=== PATIENT | male | born 1960 | race Caucasian/White ===

== ENCOUNTER 2021-07-19 19:28 | Inpatient (IN) | payer BC, SELFPAY ==
[2021-07-19] VITALS (20 sets, daily range): BP systolic 112–182; BP diastolic 63–107; PULSE 72–87; RESP 11–24; TEMP 35.3–37; O2SAT 80–100; BMI 24.0
--- NOTE | ~2021-07-19 | XR_ITS ---
XR chest 1V portable DATE: 07/19/2021 19:55 INDICATION: Bilateral upper chest pain TECHNIQUE: Apical lordotic portable upright AP view on 07/19/2021 at 1952 hours COMPARISON: None FINDINGS: Normal heart size. Is aortic calcification and tortuosity. No hilar or mediastinal enlargem ent is evident. The lungs appear clear of infiltrate or consolidation. No pleural effusion or pulmona ry vascular congestion or pneumothorax. Bilateral rotator cuff atrophy. IMPRESSION: No active cardiac pulmonary disease Aortic calcification and tortuosity Reviewed, dictated and finalized at location [facility]
--- NOTE | 2021-07-19 19:34 | ECG_ITS ---
Measurements Intervals [place] Rate: 72 P: 55 MT: 156 QRS: 24 QRSD: 97 T: 56 QT: 399 QTc: 438 Interpretive Statements SINUS RHYTHM INFERIOR ST ELEVATION MYOCARDIAL INFARCT- ACUTE POSTERIOR INFARCT- ACUTE LATERAL ST ELEVATION MYOCARDIAL INFARCT- ACUTE BASELINE ARTIFACT- I, II, III, V4 ABNORMAL ECG Electronically Signed On 07-19-2021 20:43:48 PLASTICS FABRICATOR AND ASSEMBLER by Rc Maciel D.O.
--- NOTE | 2021-07-19 19:55 | ED.GENADULT ---
HPI - General Adult General Chief complaint: Chest Pain Stated complaint: chest pain x1hr Time Seen by Provider: 07/19/21 19:45 History of Present Illness HPI narrative: Patient is a 60-year-old gentleman who presents to emergency department chief complaint of chest pain. Patient reports approximately 1 hour prior to arrival he started having midsternal pressure and tightness in his chest. The patient states is nonradiating but reports that he got diaphoretic when it happened the patient reports mild shortness of breath. Patient reports no prior cardiac history but has history of hypertension. Patient reports has never had a stress test or cardiac cath. Patient reports pain is not improved by anything nor is it worsened by anything. Related Data Allergies Allergy/AdvReac Type Severity Reaction Status Date / Time No Known Allergies Allergy Verified 07/19/21 19:54 Review of Systems Review of Systems: A 10 system review of systems was completed on the patient and is negative except for what is stated in the HPI. Nursing and ancillary documentation was reviewed. PMFSH Comments Patient denies smoking Exam Narrative: GENERAL: Well-appearing, well-nourished, and in no acute distress. HEAD: Normocephalic, atraumatic. EYES: PERRLA and EOMI. ENT: Nares clear, no rhinorrhea or epistaxis. Mucous membranes moist. NECK: Supple. CHEST: Clear to auscultation. No respiratory distress. HEART: Regular rate and rhythm. No murmur heard. Normal peripheral pulses. ABDOMEN: Soft, nontender, nondistended, normal active bowel sounds. EXTREMITIES: Normal range of motion. No edema. SKIN: Warm, dry, no rash. NEURO: No focal deficits. Alert and oriented x3. PSYCH: Normal mood and affect. Course Course Emergency Course: EKG shows a ST elevation FL with elevation in 2 3 aVF and reciprocal changes in V1 through V3 Vital Signs Vital signs: Vital Signs Temperature 35.3 C L 07/19/21 19:35 Pulse Rate 77 07/19/21 19:35 Respiratory Rate 18 07/19/21 19:35 Blood Pressure 182/95 H 07/19/21 19:35 Pulse Oximetry 100 07/19/21 19:35 Temperature 35.3 C L 07/19/21 19:35 Pulse Rate 87 07/19/21 19:50 Respiratory Rate 19 07/19/21 19:50 Blood Pressure 177/107 H 07/19/21 19:50 Pulse Oximetry 100 07/19/21 19:35 Medical Decision Making Vital Signs Vital Signs: Vital Signs Temperature 35.3 C L 07/19/21 19:35 Pulse Rate 77 07/19/21 19:35 Respiratory Rate 18 07/19/21 19:35 Blood Pressure 182/95 H 07/19/21 19:35 Pulse Oximetry 100 07/19/21 19:35 Temperature 35.3 C L 07/19/21 19:35 Pulse Rate 87 07/19/21 19:50 Respiratory Rate 19 07/19/21 19:50 Blood Pressure 177/107 H 07/19/21 19:50 Pulse Oximetry 100 07/19/21 19:35 Lab Data Result diagrams: 07/19/21 19:51 07/19/21 19:51 Labs: Lab Results 07/19/21 07/19/21 07/19/21 Range/Units 19:51 19:51 19:51 WBC Pending RBC Pending Hgb Pending Hct Pending MCV Pending MCH Pending MCHC Pending RDW Pending Plt Count Pending MPV Pending Immature Gran % (Auto) Pending Neut % (Auto) Pending Lymph % (Auto) Pending Taney % (Auto) Pending Eos % (Auto) Pending Baso % (Auto) Pending Lymph # (Auto) Pending Taney # (Auto) Pending Eos # (Auto) Pending Baso # (Auto) Pending Abs Immat Gran (auto) Pending Absolute Neuts (auto) Pending Absolute Nucleated RBC Pending Nucleated RBC % Pending PT Pending INR Pending APTT Pending Sodium Pending Potassium Pending Chloride Pending Carbon Dioxide Pending Anion Gap Pending BUN Pending Creatinine Pending Estim Creat Clear Calc Pending Estimated GFR Pending Glucose Pending Calcium Pending Total Bilirubin Pending AST Pending ALT Pending Alkaline Phosphatase Pending
[2021-07-19 19:57] LABS: Basophils Absolute Auto 0.1 K/mm3 (0.0-0.1); Basophils Percent Auto 0.9 % (0.2-1.2); Eosinophils Absolute Auto 0.3 K/mm3 (0-0.3); Eosinophils Percent Auto 2.2 % (0-4.4); Hematocrit 51.9 % (42.0-52.0); Hemoglobin 17.9 g/dL (14.0-18.0); Immature Granulocyte Absolute 0.08 K/mm3 (0.00-0.031); Immature Granulocyte Percent A 0.6 % (0-0.5); Lymphocytes Absolute Auto 1.57 K/mm3 (0.9-3.2); Lymphocytes Percent Auto 12.2 % (18.3-44.2); Mean Corpuscular HGB Conc 34.5 g/dl (32-36); Mean Corpuscular Hemoglobin 31.8 pg (26-34); Mean Corpuscular Volume 92.2 fl (80-100); Mean Platelet Volume 8.5 fl (7.4-10.4); Monocytes Absolute Auto 0.9 K/mm3 (0.1-0.6); Monocytes Percent Auto 6.7 % (2.6-8.5); Neutrophils Percent Auto 77.4 % (45.5-73.1); Platelet Count Result 239 k/mm3 (150-375); Red Blood Count 5.63 M/mm3 (4.6-6.20); Red Cell Distribution Width 14.2 % (11.5-14.5); White Blood Count 12.9 K/mm3 (4.5-10.0)
[2021-07-19] MEDS: TICAGRELOR 90 MG TABLET 180 MG (19:59)
[2021-07-19] MEDS: MORPHINE SULFATE (*CRX) 4 MG/ML INJ 2 MG IV PUSH (20:04)
[2021-07-19 20:09] LABS: Alanine Aminotransferase 37 U/L (4-50); Albumin Level 5.1 g/dL (3.5-5.1); Alkaline Phosphatase 143 U/L (38-126); Anion Gap 13 mmol/L (8-16); Aspartate Amino Transferase 36 U/L (17-59); Bilirubin,Total 0.6 mg/dL (0.2-1.3); Blood Urea Nitrogen 8 mg/dL (9-20); Calcium 9.8 mg/dL (8.4-10.2); Carbon Dioxide 22 mmol/L (22-30); Chloride 101 mmol/L (98-107); Estimated CRCL calculation 68 ml/min; Estimated Glomerular Filt Rate > 60; Glucose 139 mg/dL (65-110); Lipase 109 U/L (23-300); Potassium 3.4 mmol/L (3.4-5.0); Sodium 136 mmol/L (137-145)
[2021-07-19 20:21] LABS: Troponin I 0.022 ng/mL (0.000-0.034)
[2021-07-19 20:30] LABS: EDCOVIDSCREEN Negative (Negative)
[2021-07-19 21:03] LABS: Prothrombin Time 13.4 Seconds (11.1-14.7)
--- NOTE | 2021-07-19 21:19 | PM.CNCAR ---
Assessment and Plan Additional Plan Inferolateral wall STEMI, Plan emergency LHC and PCI, ASA statin, B-frederick, ACEI, TTE, cardiac rehab History of Present Illness History of Present Illness Consult date/time: 07/19/21 21:19 Consult reason: chest pain Reason For Visit: chest pain x1hr Narrative: acute midsternal diffuse chest pain non radiating, started 2 hours before admission, pain is sever and associated with nausea and sweating, no precipitating or relieving factors, and no similar episodes in past. Review of Systems Review of Systems: All systems reviewed & are unremarkable except as noted in HPI and below [facility] Past Medical History Medical History (Updated 07/19/21 @ 21:24 by Ernst Townsend MD) Hypertension Meds Home Medications and Allergies Allergies Allergy/AdvReac Type Severity Reaction Status Date / Time No Known Allergies Allergy Verified 07/19/21 19:54 Vital Signs Vital Signs - 24 hr 07/19/21 19:35 07/19/21 19:50 07/19/21 20:11 Temperature 35.3 C L Pulse Rate 77 87 75 Respiratory Rate 18 19 14 Blood Pressure 182/95 H 177/107 H 174/94 H Pulse Oximetry 100 99 07/19/21 20:25 Temperature Pulse Rate 72 Respiratory Rate 16 Blood Pressure 162/101 H Pulse Oximetry 100 Exam Const: General: comfortable and no acute distress Other: Able to lie flat HENMT: General nose exam: Normal nares present and no epistaxis Mouth: Yes moist mucous membranes Eyes: Sclera: sclerae normal Pupils: Equal, round and reactive pupils present Neck: Neck: supple and no JVD Carotids: no bruits Resp: Auscultation: clear to auscultation bilaterally and lung sounds not diminished Other: No chest wall tenderness Cardio: Rate: regular rate Rhythm: regular rhythm Heart sounds: no gallops, no murmurs and no rubs GI: GI Palp: Yes Soft to palpation and No Tenderness to palpation present (GI) Auscultation: normal bowel sounds Skin: General skin exam: normal color, rashes and/or lesions noted and no erythema Other: Warm Neuro: Cranial nerves: Yes Equal, round and reactive pupils present Speech: normal speech Other: No obvious focal deficit or facial asymmetry Extrem: General: no edema Other: Normal capillary refills Intact distal pulses. Results Labs and Meds Result diagrams: 07/19/21 19:51 07/19/21 19:51 Lab results: Cardiac Enzymes 07/19/21 Range/Units 19:51 AST 36 (17-59) U/L Troponin I 0.022 (0.000-0.034) ng/mL CBC 07/19/21 Range/Units 19:51 WBC 12.9 H (4.5-10.0) K/mm3 RBC 5.63 (4.6-6.20) M/mm3 Hgb 17.9 (14.0-18.0) g/dL Hct 51.9 (42.0-52.0) % Plt Count 239 (150-375) k/mm3 Lymph # (Auto) 1.57 (0.9-3.2) K/mm3 Sharkey # (Auto) 0.9 H (0.1-0.6) K/mm3 Eos # (Auto) 0.3 (0-0.3) K/mm3 Baso # (Auto) 0.1 (0.0-0.1) K/mm3 Comprehensive Metabolic Panel 07/19/21 Range/Units 19:51 Sodium 136 L (137-145) mmol/L Potassium 3.4 (3.4-5.0) mmol/L Chloride 101 (98-107) mmol/L Carbon Dioxide 22 (22-30) mmol/L BUN 8 L (9-20) mg/dL Creatinine 1.00 (0.7-1.3) mg/dL Glucose 139 H (65-110) mg/dL Calcium 9.8 (8.4-10.2) mg/dL AST 36 (17-59) U/L ALT 37 (4-50) U/L Alkaline Phosphatase 143 H (38-126) U/L Total Protein 9.0 H (6.3-8.2) g/dL Albumin 5.1 (3.5-5.1) g/dL Patient Weight 07/19/21 23:59 Weight 77.11 kg
[2021-07-19 21:20] LABS: Partial Thromboplastin Time 30.5 SECONDS (22.3-36.8)
--- NOTE | 2021-07-19 21:27 | WPDCARDPROC ---
Cardiac Cath Procedure Note Date of procedure:: 07/19/21 Performing physician:: Ernst Townsend MD Assessment and Plan Additional Plan PROCEDURE 1. LHC and coronary angiogram 2. PCI to distal RCA acute total occlusion culprit lesion for STEMI INDICATION STEMI inf wall HISTORY 60 Yrs old male presented with acute chest pain, EKG showed inf wall STEMI PROCEDURE DETAILS Consent obtained and time out done Rt radial access obtained with Seldinger technique Diagnostic angiogram done with JL4 and JR4 and AV crossed with JR4 HEMODYNAMIC FINDINGS Aorta: 100/70 LV: 100/20 No gradient across AV ANGIOGRAPHIC FINDINGS Left main: no obstructive disease LAD: gives on intermediate size diagonal, mid LAD with 70% stenosis LCX: gives OM branches and multiple bifurcations, no obstructive disease in LCX or OM RCA: distal RCA acute total occlusion, LAYLA 0 flow, at RCA bifurcation, culprit lesion for STEMI, class B lesion PCI DETAILS Guide catheter: JR4 Guidewire: Samurai crossed to distal vessel with no difficulty Balloon Emerge 2.5 * 12 mm balloon and followed by stent with 3.0 * 18 mm, post dilated with 3.5 Quantem apex NC and then IVUS was done which revealed stent ended at RCA bifurcation and full expanded, vessel is 4 mm and further post dilation was done with 4.0 NC balloon. Post intervention: LAYLA 3 flow and no residual stenosis COMPLICATIONS None Sheath removed and TR band applied successfully CONCLUSION Successful PCI to acute RCA total occlusion at RCA bifurcation IVUS guided Mid LAD moderate disease RECOMMENDATION ASA, Ticagrelor, statin, B-frederick, ACEI TTE Evaluation for mid LAD in stage intervention
[2021-07-19 22:00] LABS: Activated Clotting Time 315 SEC (74-137)
--- NOTE | 2021-07-19 22:13 | ECG_ITS ---
Measurements Intervals [place] Rate: 69 P: 45 TX: 149 QRS: -8 QRSD: 97 T: 76 QT: 404 QTc: 434 Interpretive Statements SINUS RHYTHM WITH OCCASIONAL SUPRAVENTRICULAR PREMATURE COMPLEXES INFERIOR MYOCARDIAL INFARCTION , RECENT BY PREVIOUS ECG REVIEW COMPARED TO ECG 07/19/2021 19:41:06 INFERIOR CURRENT OF INJURY HAS RESOLVED WITH SOME PERSISTENT INFERIOR ST ELEVATED Electronically Signed On 10-17-2021 12:43:58 CDT by Christopher Holt M.D.
--- NOTE | 2021-07-19 22:36 | ADMGEN ---
This patient, Butch Solares, was admitted to Intensive Care Unit-4. Patient/family oriented to hospital policies and general routines including ID bracelet, bed and alarms, visiting hours, pain management, procedures, bathroom and other care routines, personal items, smoking policy, room service/diet, and visiting hours. Information on how to activate the Rapid Response Team has been discussed. Patient/Family are encouraged to report perceived risks to care and to ask questions if they do not understand what they are told or what they should do.
[2021-07-19] MEDS: SODIUM CHLORIDE 0.9% IV 1,000 ML 125 ML IV CONT (23:00)
[2021-07-20] VITALS (47 sets, daily range): BP systolic 130–159; BP diastolic 83–96; PULSE 63–87; RESP 11–29; TEMP 36–36.9; O2SAT 92–99
--- NOTE | 2021-07-20 08:47 | ECG_ITS ---
Measurements Intervals [place] Rate: 68 P: 36 UT: 141 QRS: -40 QRSD: 108 T: -15 QT: 419 QTc: 446 Interpretive Statements SINUS RHYTHM INCOMPLETE RIGHT BUNDLE BRANCH BLOCK INFERIOR INFARCT- PROBABLY RECENT BASELINE ARTIFACT- I, II, III, AVR, AVL, AVF, V1, V4-V6 ABNORMAL ECG Electronically Signed On 07-20-2021 16:31:48 GREEN LUMBER GRADER by Rc Maciel D.O.
[2021-07-20] MEDS: ATORVASTATIN 40 MG TABLET 80 MG PO (10:04)
[2021-07-20] MEDS: METOPROLOL TARTRATE 12.5 MG TABLET PO (10:04)
[2021-07-20] MEDS: ASPIRIN 81 MG ENTERIC TABLET PO (10:04)
[2021-07-20] MEDS: lisinopriL 20 MG TABLET PO (10:06)
[2021-07-20] MEDS: amLODIPine BESYLATE 5 MG TABLET 10 MG PO (10:14)
[2021-07-20 10:23] LABS: Cholesterol 150 mg/dL (0-200); HDL Direct 41 mg/dL; Triglycerides 96 mg/dL (<150)
[2021-07-20 10:33] LABS: LDL Cholesterol Direct 86 mg/dL
[2021-07-20] MEDS: TICAGRELOR 90 MG TABLET PO ×2 (10:35→21:13)
--- NOTE | 2021-07-20 12:34 | PM.PNCARD ---
Progress Note: A&P Assessment and Plan (1) Acute ST elevation myocardial infarction: Qualifiers: Involved coronary artery: unspecified coronary artery Qualified Code(s): I21.3 - ST elevation (STEMI) myocardial infarction of unspecified site Code(s): I21.3 - ST elevation (STEMI) myocardial infarction of unspecified site Status: Acute Assessment and Plan: Peak troponin over 29. No anginal symptoms. Status post successful 3.0 x 18 mm drug-eluting stent to distal RCA culprit lesion post dilated to 4 mm. Residual mid LAD 70% stenosis. Discussed further evaluation and possible staging intervention in near future as appropriate. -continue aspirin, ticagrelor, statin, metoprolol, lisinopril. Resume amlodipine for BP control. -explained at length need for ongoing hospitalization for minimum of 48 hours. Counseled on Lifestyle modification, absolute importance of compliance with medications and risks with acute stent thrombosis with noncompliance with aspirin and ticagrelor. Explained the importance of aspirin indefinitely. Explained the importance and pathophysiologic benefit of statin therapy in reduction in cholesterol as well as stabilization of CAD and reduction in risk of acute plaque rupture resulting in a heart attack. All questions answered to his satisfaction. Okay to transfer to IMU today. Continue telemetry. -2D echocardiogram in a.m. to assess LV function, valve pathology, pulmonary pressures normal wall motion abnormalities. Recommendation follow after review. (2) NSVT (nonsustained ventricular tachycardia): Code(s): I47.2 - Ventricular tachycardia Status: Acute Assessment and Plan: Is symptomatic. Caution with aggressive up titration of beta-frederick but may increase to 25 mg. Continue telemetry. Discussed significance of ventricular ectopy and nonsustained VT within 1st 24 hours and thereafter. (3) Hypertension: Qualifiers: Hypertension type: primary hypertension Qualified Code(s): I10 - Essential (primary) hypertension Code(s): I10 - Essential (primary) hypertension Status: Inactive Assessment and Plan: BP fair, somewhat elevated. Continue current therapy. (4) Alcohol abuse: Code(s): F10.10 - Alcohol abuse, uncomplicated Status: Acute Assessment and Plan: Counseled on need to cut down and or abstain. Monitor for DT, protocol per unit. Will involve hospitalist service as appropriate. Additional Plan PROCEDURE 1. LHC and coronary angiogram 2. PCI to distal RCA acute total occlusion culprit lesion for STEMI INDICATION STEMI inf wall HISTORY 60 Yrs old male presented with acute chest pain, EKG showed inf wall STEMI PROCEDURE DETAILS Consent obtained and time out done Rt radial access obtained with Seldinger technique Diagnostic angiogram done with JL4 and JR4 and AV crossed with JR4 HEMODYNAMIC FINDINGS Aorta: 100/70 LV: 100/20 No gradient across AV ANGIOGRAPHIC FINDINGS Left main: no obstructive disease LAD: gives on intermediate size diagonal, mid LAD with 70% stenosis LCX: gives OM branches and multiple bifurcations, no obstructive disease in LCX or OM RCA: distal RCA acute total occlusion, LAYLA 0 flow, at RCA bifurcation, culprit lesion for STEMI, class B lesion PCI DETAILS Guide catheter: JR4 Guidewire: Tristianurai crossed to distal vessel with no difficulty Balloon Emerge 2.5 * 12 mm balloon and followed by stent with 3.0 * 18 mm, post dilated with 3.5 Quantem apex NC and then IVUS was done which revealed stent ended at RCA bifurcation and full expanded, vessel is 4 mm and further post dilation was done with 4.0 NC balloon. Post intervention: LAYLA 3 flow and no residual stenosis COMPLICATIONS None Sheath removed and TR band applied successfully CONCLUSION Successful PCI to acute RCA total occlusion at RCA bifurcation IVUS guided Mid LAD moderate disease RECOMMENDATION
--- NOTE | 2021-07-20 12:50 | WPDCNINT ---
Assessment and Plan Assessment and plan (1) Acute ST elevation myocardial infarction: Qualifiers: Involved coronary artery: unspecified coronary artery Qualified Code(s): I21.3 - ST elevation (STEMI) myocardial infarction of unspecified site Code(s): I21.3 - ST elevation (STEMI) myocardial infarction of unspecified site Status: Acute Assessment and Plan: Patient presented with retrosternal chest pain, was found to have inferior FL on EKG. -patient taken emergent cardiac cath found 100% occlusion the distal RCA status post DANY x1. Patient also has a residual 70% lad lesion. -cardiology following the patient closely -continue aspirin, ticagrelor, statin, metoprolol, lisinopril. (2) NSVT (nonsustained ventricular tachycardia): Code(s): I47.2 - Ventricular tachycardia Status: Acute Assessment and Plan: Cardiology recommended increasing beta-frederick to 25 mg. (3) Alcohol abuse: Code(s): F10.10 - Alcohol abuse, uncomplicated Status: Acute Assessment and Plan: Monitor for alcohol withdrawal (4) Essential hypertension: Code(s): I10 - Essential (primary) hypertension Status: Acute Assessment and Plan: Amlodipine was resumed along with all the other cardiac meds mentioned above. Additional Plan Discussed with patient updated him with his condition and plan of care. Code status: Full code Critical care time spent: 43 minutes This dictation may have been done utilizing a voice recognition system. Attempts have been made to correct errors. However, there may be uncorrected grammatical, spelling, and recognition errors present. Due to a high probability of clinically significant, life threatening deterioration, the patient required my highest level of preparedness to intervene emergently and I personally spent this critical care time directly and personally managing the patient. This critical care time included obtaining a history; examining the patient; pulse oximetry; ordering and review of studies; arranging urgent treatment with development of a management plan; evaluation of patient's response to treatment; frequent reassessment; and discussions with other providers. It was exclusive of separately billable procedures and treating other patients and teaching time. Please see Assessment and Plan section and the rest of the note for further information on patient assessment and treatment Universal Grinder Operator Consult Note Consult date: 07/20/21 Time Seen: 07:06 Reason for consult: Acute ST-elevation FL status post cardiac catheterization and stent x1 to the RCA on 07/19/2021 HPI: Butch Solares is a 60 year old male with past medical history of hypertension presented the ED with chief complaints of retrosternal chest pain that started 1 hour prior to arrival to the ED. patient was diaphoretic and complained of shortness of breath. Denied nausea vomiting. EKG showed inferior ST-elevation myocardial injury and patient was emergently taken to [facility] and blocker [facility] where he was found to have complete occlusion of the distal RCA. Status post DANY x1. Patient also had residual mid LAD 70% stenosis. Cardiac catheterization was done via right radial approach. Patient was transferred to the ICU for further management Patient seen and examined this morning in the ICU, denies any chest pain, shortness of breath, abdominal pain, nausea vomiting at this time. Radial pulses right-sided are normal and bounding. Patient does state he drinks 5-6 beers daily, denies any tobacco use but does use marijuana on occasions. Review of Systems Review of Systems: All systems reviewed & are unremarkable except as noted in HPI and below PMFSH Past Medical History Medical History (Updated 07/20/21 @ 13:01 by Tony Michelle MD) Hypertension Family History Family History (Updated 07/19/21 @ 22:42 by Carleen Daley RN) Mother Acute myocardial infarction Father Acute myocardial infarction
[2021-07-20] MEDS: METOPROLOL TARTRATE 25 MG TABLET PO (21:14)
[2021-07-21] VITALS (12 sets, daily range): BP systolic 127–141; BP diastolic 79–99; PULSE 55–73; RESP 15–20; TEMP 36.4–36.9; O2SAT 94–98
[2021-07-21 04:39] LABS: Hematocrit 48.3 % (42.0-52.0); Hemoglobin 16.5 g/dL (14.0-18.0); Mean Corpuscular HGB Conc 34.2 g/dl (32-36); Mean Corpuscular Hemoglobin 31.7 pg (26-34); Mean Corpuscular Volume 92.9 fl (80-100); Mean Platelet Volume 8.7 fl (7.4-10.4); Platelet Count Result 217 k/mm3 (150-375); Red Cell Distribution Width 14.3 % (11.5-14.5); White Blood Count 9.3 K/mm3 (4.5-10.0)
[2021-07-21 04:54] LABS: Anion Gap 5 mmol/L (8-16); Blood Urea Nitrogen 6 mg/dL (9-20); Calcium 9.4 mg/dL (8.4-10.2); Carbon Dioxide 25 mmol/L (22-30); Chloride 106 mmol/L (98-107); Estimated CRCL calculation 83 ml/min; Estimated Glomerular Filt Rate > 60; Glucose 108 mg/dL (65-110); Potassium 3.7 mmol/L (3.4-5.0); Sodium 136 mmol/L (137-145)
[2021-07-21] MEDS: METOPROLOL TARTRATE 25 MG TABLET PO ×2 (07:59→20:27)
[2021-07-21] MEDS: TICAGRELOR 90 MG TABLET PO ×2 (07:59→20:27)
[2021-07-21] MEDS: ATORVASTATIN 40 MG TABLET 80 MG PO (07:59)
[2021-07-21] MEDS: lisinopriL 20 MG TABLET PO (07:59)
[2021-07-21] MEDS: ASPIRIN 81 MG ENTERIC TABLET PO (07:59)
[2021-07-21] MEDS: amLODIPine BESYLATE 5 MG TABLET 10 MG PO (07:59)
--- NOTE | 2021-07-21 08:47 | ECHO_ITS ---
Patient Info Name: Butch Solares Age: 60 years : 1960 Gender: Male Ht: 69 in Wt: 162 lbs BSA: 1.90 m2 HR: 70 bpm BP: 141 / 99 mmHg Heart Rhythm: Sinus Rhythm Technical Quality: Good Exam Date: 07/21/2021 10:55 AM Exam Location: [facility] Exam Room: ICU4 Patient Status: Inpatient Admit Date: 07/19/2021 Staff Ordering Physician: Everardo Granger MD Cargo Agent: Linda Vang RDCS Attending Provider: Ernst Townsend MD Referring Physician: Bárbara MUNOZ; Exam Type: CA echo doppler color flow Study Info Indications - STEMI S/P STENT Complete two-dimensional, color flow and Doppler transthoracic echocardiogram is performed. Summary 1. Complete two-dimensional, color flow and Doppler transthoracic echocardiogram is performed. 2. Left ventricular systolic function is mildly reduced, estimated at 45-50%. 3. Left ventricular chamber dimension is normal. 4. The basal to mid inferior segment is akinetic. 5. Left atrial chamber dimension is mildly enlarged. 6. There is trace mitral valve regurgitation. Left Ventricle Left ventricular chamber dimension is normal. Left ventricular systolic function is mildly reduced, estimated at 45-50%. The left ventricular diastolic function is normal. The basal to mid inferior segment is akinetic. Right Ventricle Right ventricular chamber dimension is normal. Left Atria Left atrial chamber dimension is mildly enlarged. Right Atria Right atrial chamber dimension is normal. Aortic Valve The aortic valve is normal. Pulmonic Valve The pulmonic valve is not well visualized. Mitral Valve The mitral valve has normal leaflets. There is trace mitral valve regurgitation. Tricuspid Valve The tricuspid valve leaflets are normal. Pericardium/Pleural The pericardium appears normal. Aorta The aortic root size at the sinus of Valsalva is normal. Left Ventricular Outflow Tract Name Value Normal LVOT 2D LVOT Diameter 2.1 cm LVOT Doppler LVOT Peak Gradient 4 mmHg LVOT Mean Gradient 2 mmHg LVOT VTI 23 cm LVOT VTI/AV VTI Ratio 0.9 LVOT Stroke Volume 79 ml LVOT CO 14.6 l/min LVOT CI 7.7 l/min/m2 Pulmonic Valve Name Value Normal PV Doppler PV Peak Gradient 3 mmHg Mitral Valve Name Value Normal MV Doppler MV Decel [place] 305 cm/s2 MV PHT 58
--- NOTE | 2021-07-21 10:50 | PM.PNCARD ---
Progress Note: A&P Additional Plan 60-year-old man with: Coronary artery disease presenting with acute inferior wall TN this past weekend. Patient is stable following emergency PCI to the distal right coronary artery. Receiving dual anti-platelet therapy, HANSEL-inhibitor beta-frederick and statin. He can move out of ICU today to a telemetry bed. Consider discharge tomorrow barring any problems. Echocardiogram being done this morning to assess LV function. Christopher Holt MD [facility] Subjective Date/time seen: Date of service: 07/21/21 10:50 Interval history: Follow-up visit in this 60-year-old man with: Coronary artery disease presenting for the 1st time this past weekend with acute inferior wall myocardial infarction. He is brought emergently to the cardiac catheterization lab where he underwent successful emergency revascularization with stenting of the distal right coronary artery. Doing well since then. Did have some asymptomatic nonsustained ventricular tachycardia yesterday. No arrhythmias today. Exam Const: General: comfortable and no acute distress Other: Able to lie flat HENMT: General nose exam: Normal nares present and no epistaxis Mouth: Yes moist mucous membranes Eyes: Sclera: sclerae normal Pupils: Equal, round and reactive pupils present Neck: Neck: supple and no JVD Carotids: no bruits Resp: Auscultation: clear to auscultation bilaterally and lung sounds not diminished Other: No chest wall tenderness Cardio: Rate: regular rate Rhythm: regular rhythm Heart sounds: no gallops, no murmurs and no rubs GI: Auscultation: normal bowel sounds Skin: General skin exam: normal color, rashes and/or lesions noted and no erythema Other: Warm Neuro: Cranial nerves: Yes Equal, round and reactive pupils present Speech: normal speech Other: No obvious focal deficit or facial asymmetry Extrem: General: no edema Other: Normal capillary refills Intact distal pulses. Right radial pulse is 2 + no cyanosis right hand, mild bruising without hematoma or bleeding Objective Data Vital Signs Vital Signs: Vital Signs - 24 hr 07/20/21 12:00 07/20/21 12:30 07/20/21 14:00 Temperature 36.0 C L Pulse Rate 68 66 65 Respiratory Rate 18 16 Blood Pressure 150/96 H Pulse Oximetry 97 97 07/20/21 16:00 07/20/21 18:00 07/20/21 20:00 Temperature 36.7 C 36.7 C Pulse Rate 66 66 70 Respiratory Rate 16 16 Blood Pressure 136/83 139/85 Pulse Oximetry 98 99 07/20/21 21:14 07/20/21 22:00 07/21/21 00:00 Temperature 36.7 C Pulse Rate 76 65 62 Respiratory Rate 19 Blood Pressure 133/94 H Pulse Oximetry 96 07/21/21 02:00 07/21/21 04:00 07/21/21 06:00 Temperature 36.4 C L Pulse Rate 63 61 55 L Respiratory Rate 15 Blood Pressure 141/99 H Pulse Oximetry 96 07/21/21 07:59 07/21/21 08:00 07/21/21 10:00 Temperature 36.7 C Pulse Rate 67 63 61 Respiratory Rate 18 Blood Pressure 135/99 H Pulse Oximetry 95 Intake/Output Intake/Output: Intake & Output 07/18/21 07/19/21 07/20/21 07/21/21 23:59 23:59 23:59 23:59 Intake Total 1750 450 Output Total 3065 1350 Balance -1315 -900 Meds/Results Medications: Active Medications Generic Name Dose Route Start Last Admin Trade Name Freq PRN Reason Stop Dose Admin Amlodipine Besylate 10 mg 07/20/21 09:00 07/21/21 07:59 Amlodipine Besylate 5 Mg Tablet PO 10 mg DAILY [facility] Administration Aspirin 81 mg 07/20/21 09:00 07/21/21 07:59 Aspirin 81 Mg Enteric Tablet PO 81 mg QAM [facility] Administration Atorvastatin Calcium 80 mg 07/20/21 09:00 07/21/21 07:59 Atorvastatin 40 Mg Tablet PO 80 mg DAILY [facility] Administration Enoxaparin Sodium 40 mg 07/21/21 09:00 Enoxaparin 40 Mg/0.4 Ml Syringe SUB-Q DAILY [facility] Lisinopril 20 mg 07/20/21 09:00 07/21/21 07:59 Lisinopril 20 Mg Tablet PO 20 mg QAM [facility] Administration Metoprolol Tartrate 25 mg 07/20/21 21:00 07/21/21 07:59 Met
--- NOTE | 2021-07-21 12:45 | PC.NURSE ---
Cardiopulmonary Rehab Services flyer was given to patient.
--- NOTE | 2021-07-21 18:10 | PC.NURSE ---
This patient, Butch Solares, was transferred to [[facility]] on 07/21/21 at 1811. Personal belongings sent with patient. Report given to [Dillon ADAIR]. Appropriate documentation sent with patient. Pt. stable upon transfer.
[2021-07-21 22:17] LABS: Glucose Point of Care 166 mg/dl (65-105)
[2021-07-22] VITALS: PULSE 62
[2021-07-22 04:00] VITALS: BP 154/89; PULSE 50; PULSE 65; RESP 18; TEMP 36.3; O2SAT 99
[2021-07-22 08:00] VITALS: PULSE 66
--- NOTE | 2021-07-22 08:33 | PM.PNCARD ---
Progress Note: A&P Assessment and Plan (1) Acute ST elevation myocardial infarction: Qualifiers: Involved coronary artery: unspecified coronary artery Qualified Code(s): I21.3 - ST elevation (STEMI) myocardial infarction of unspecified site Code(s): I21.3 - ST elevation (STEMI) myocardial infarction of unspecified site Status: Acute Assessment and Plan: Status post successful 3.0 x 18 mm drug-eluting stent to distal RCA culprit lesion post dilated to 4 mm. Residual mid LAD 70% stenosis. Discussed further evaluation and possible staging intervention in near future as appropriate. -continue aspirin, ticagrelor, statin, metoprolol, lisinopril. Resume amlodipine for BP control. -Echo Showed mildly reduced LV systolic function with an ejection fraction of 45-50%. No significant valve pathology. (2) NSVT (nonsustained ventricular tachycardia): Code(s): I47.2 - Ventricular tachycardia Status: Acute (3) Hypertension: Qualifiers: Hypertension type: primary hypertension Qualified Code(s): I10 - Essential (primary) hypertension Code(s): I10 - Essential (primary) hypertension Status: Inactive Assessment and Plan: BP fair, somewhat elevated. Continue current therapy. (4) Alcohol abuse: Code(s): F10.10 - Alcohol abuse, uncomplicated Status: Acute Assessment and Plan: Counseled on need to cut down and or abstain. Monitor for DT, protocol per unit. Will involve hospitalist service as appropriate. Subjective Date/time seen: 07/22/21 08:33 Interval history: Cardiology follow up for CAD, STEMI Review of Systems Review of Systems: All systems reviewed & are unremarkable except as noted in HPI and below Constitutional: Constitutional: Reports as per HPI and Reports no additional constitutional complaints Eyes: Eyes: Reports as per HPI and Reports no additional eye complaints ENT: Reports system reviewed and no additional complaints, except as documented and Reports as per HPI Cardiovascular: Cardiovascular: Reports as per HPI and Reports no additional cardiovascular complaints Respiratory: Respiratory: Reports as per HPI and Reports no additional respiratory complaints Gastrointestinal: Gastrointestinal: Reports as per HPI and Reports no additional gastrointestinal complaints Genitourinary: Genitourinary: Reports no additional male genitourinary complaints and Reports as per HPI Musculoskeletal: Musculoskeletal: Reports no additional musculoskeletal complaints and Reports as per HPI Integumentary/Breasts: Skin/Breast: Reports system reviewed and no additional complaints, except as docu and Reports as per HPI Neurologic: Reports system reviewed and no additional complaints, except as documented and Reports as per HPI Psychiatric: Psychiatric: Reports no additional psychiatric complaints and Reports as per HPI Endocrine: Endocrine: Reports no additional endocrine complaints and Reports as per HPI Hematologic/Lymphatic: Hematologic/Lymphatic: Reports no additional hematologic/lymphatic complaints and Reports as per HPI Allergic/Immunologic: Allergic/Immunologic: Reports no additional allergic/immunologic complaints and Reports as per HPI Exam Const: General: comfortable and no acute distress Other: Able to lie flat HENMT: General nose exam: Normal nares present and no epistaxis Mouth: Yes moist mucous membranes Eyes: Sclera: sclerae normal Pupils: Equal, round and reactive pupils present Neck: Neck: supple and no JVD Carotids: no bruits Resp: Auscultation: clear to auscultation bilaterally and lung sounds not diminished Other: No chest wall tenderness Cardio: Rate: regular rate Rhythm: regular rhythm Heart sounds: no gallops, no murmurs and no rubs GI: Auscultation: normal bowel sounds Skin: General skin exam: normal color, rashes and/or lesions noted and no erythema Other: Warm Neuro: Cranial nerves: Yes Equal,
[2021-07-22] MEDS: TICAGRELOR 90 MG TABLET PO (08:43)
[2021-07-22] MEDS: ATORVASTATIN 40 MG TABLET 80 MG PO (08:43)
[2021-07-22] MEDS: ASPIRIN 81 MG ENTERIC TABLET PO (08:43)
[2021-07-22] MEDS: amLODIPine BESYLATE 5 MG TABLET 10 MG PO (08:43)
[2021-07-22 08:44] VITALS: PULSE 69
[2021-07-22] MEDS: lisinopriL 20 MG TABLET PO (08:44)
[2021-07-22] MEDS: METOPROLOL TARTRATE 25 MG TABLET PO (08:44)
--- NOTE | 2021-07-22 09:06 | PM.DS ---
DS: Admitting Diagnosis Discharge Date 07/22/2021 Admitting Diagnosis STEMI DS: Discharge Diagnosis Discharge Diagnosis (1) Acute ST elevation myocardial infarction: Qualifiers: Involved coronary artery: unspecified coronary artery Qualified Code(s): I21.3 - ST elevation (STEMI) myocardial infarction of unspecified site Code(s): I21.3 - ST elevation (STEMI) myocardial infarction of unspecified site Status: Acute Assessment and Plan: Status post successful 3.0 x 18 mm drug-eluting stent to distal RCA culprit lesion post dilated to 4 mm. Residual mid LAD 70% stenosis. Possible staging intervention in near future as appropriate. Not complaining of any chest pain, shortness of breath, palpitations this morning. He is stable from a cardiac perspective and is appropriate for discharge home from the hospital today. continue aspirin, ticagrelor, statin, metoprolol, lisinopril. Resume amlodipine for BP control. Echo Showed mildly reduced LV systolic function with an ejection fraction of 45-50%. No significant valve pathology. Discussed importance of adherence to his medical regimen especially dual anti-platelet therapy. Also discussed dietary modifications including low-fat low-cholesterol diet. He will be enrolled in cardiac rehab as an outpatient he verbalized understanding of everything discussed and all questions were answered to his satisfaction. (2) Alcohol abuse: Code(s): F10.10 - Alcohol abuse, uncomplicated Status: Acute Assessment and Plan: Counseled on need to cut down and or abstain. (3) NSVT (nonsustained ventricular tachycardia): Code(s): I47.2 - Ventricular tachycardia Status: Acute Assessment and Plan: Has not had any nonsustained VT on telemetry since 07/20/2021. (4) Essential hypertension: Code(s): I10 - Essential (primary) hypertension Status: Acute Assessment and Plan: improved with addition amlodipine. Can up titrate his antihypertensive medications as an outpatient if necessary. DS: Summary Hospital Course Hospital Course: Presented to the emergency department with complaints of severe midsternal chest pain. His initial EKG had ST elevations in leads II, III in aVL, suggesting acute inferior wall HI. he was emergently taken to the cardiac catheterization lab where he was found to have an acute total occlusion the distal RCA. This was addressed with placement of a 3.0 x 18mm drug-eluting stent. He was also have found to have 70% stenosis in the mid LAD. Following his PCI he did have some asymptomatic nonsustained ventricular tachycardia. No other complications. Today, he is not complaining of any symptoms whatsoever. Vital signs are stable, telemetry shows sinus rhythm with no ectopy over the last 24 hours. He is stable and appropriate for discharge home today. Time Spent with Patient Time attestation: Total time spent providing and/or coordinating discharge services: Exam Const: General: comfortable and no acute distress HENMT: Head: normal to inspection, normocephalic and atraumatic Ears: hearing grossly normal bilaterally Eyes: General: appearance normal, both eyes and all related structures Pupils: Equal, round and reactive pupils present Neck: Neck: supple and no JVD Resp: Auscultation: clear to auscultation bilaterally, no crackles, no rales and no wheezes Cardio: Rate: regular rate Rhythm: regular rhythm Heart sounds: no murmurs GI: GI Palp: Yes Soft to palpation Auscultation: normal bowel sounds Skin: General skin exam: normal color Other: Right radial arterial access site free bleeding, hematoma, swelling, drainage. Extrem: General: normal to inspection, no edema and no pedal edema Other: Distal pulses are intact. Psych: Mental Status: mental status grossly normal Affect: normal affect DS: Data Data Completed and Pending Labs on day of discharge: Labs from last 24 hours
[2021-07-22 10:15] VITALS: BP 123/81; PULSE 55; RESP 14; TEMP 36.8; O2SAT 97
== END 2021-07-22 12:30 | disposition home or self-care (01) | DRG 247 ==
LOC: ANHED 19:57 → ANHICU 07-20 10:38 → ANH2MED 07-22 09:05 → ANHICU 07-23 16:18
PROVIDERS: Internal Medicine Cardiovascular Disease; Admitting Provider Internal Medicine Interventional Cardiology; Emergency Provider Emergency Medicine; Visit Provider Nurse Practitioner
PROC: 4A023N7 Measurement of Cardiac Sampling and Pressure, Left Heart, Percutaneous Approach (ICD-10-PCS; CPT 93452; principal; 2021-07-19 19:00)
PROC: 027034Z Dilation of Coronary Artery, One Artery with Drug-eluting Intraluminal Device, Percutaneous Approach (ICD-10-PCS; 2021-07-19 19:00)
PROC: 027034Z Dilation of Coronary Artery, One Artery with Drug-eluting Intraluminal Device, Percutaneous Approach (ICD-10-PCS; 2021-07-19 19:00)
DX: I21.19 ST elevation (STEMI) myocardial infarction involving other coronary artery of inferior wall (principal); I47.2 Ventricular tachycardia; I25.10 Atherosclerotic heart disease of native coronary artery without angina pectoris; I10 Essential (primary) hypertension; Z20.822 Contact with and (suspected) exposure to COVID-19; F10.10 Alcohol abuse, uncomplicated; Z79.899 Other long term (current) drug therapy
CPT/HCPCS: 36415; 71045; 80048; 80053; 80061; 82948; 83690; 84484; 85025; 85027; 85610; 85730; 87426; 92978; 93005; 93306; 93458; 96374; 99291; A9270; C1725; C1753; C1769; C1874; C1887; C1894; C9606; C9803; J0153; J0461; J1644; J2250; J2270; J3010; J7030; J7040